=== PATIENT | female | born 1965 | race Caucasian/White ===

== ENCOUNTER 2021-05-23 15:18 | Emergency (ER) | payer SELFPAY ==
[2021-05-23] MEDS ORDERED: SODIUM CHLORIDE 0.9% 1000 ML 1,000 ML IV ONE (15:48)
--- NOTE | 2021-05-23 15:48 | Emergency Department Report ---
ED Headache HPI - General Chief Complaint: Headache Stated Complaint: PAIN IN LT HEAD/FULLNESS IN LT EAR Time Seen by Provider: 05/23/21 15:32 Source: patient Exam Limitations: no limitations - History of Present Illness Initial Comments: 56-year-old female with a past medical history of SVT but currently not any medications for it presents to the ER today with complaints of tenderness to her left temporal area as well as fullness to her left ear. Patient states that symptoms started about 2 days ago. She describes the pain as throbbing and has been constant for the past 2 days. She denies any pain in her ear or drainage from the ear. She denies any recent injuries to her head or her ear. She denies any recent URI symptoms. She denies any vision changes, any rash, numbness, tingling, focal weakness, dizziness, nausea, vomiting, neck pain, fever or chills. She states that she used to suffer from migraines several years ago but she has not had any issues with it in a while and this does not feel typical of her migraine she used to get several years ago. She states that she took Tylenol but that did not help much. She states that the pain is worse on palpation and when she lays her head on the left side. She states that it feels like the temporal area swollen and she noticed that her vein was bulging earlier today. She states that pain is not worse when she chews. She denies any dental pain. She denies any redness or warmth to the area. She denies any apparent rash. Denies any family history of aneurysms or past history of intracranial bleed. She does not smoke or do any drugs. Timing/Duration: constant, other ( 3 days ) Quality: moderate Head Injury Location: temporal Allergies/Adverse Reactions: Allergies latex Allergy (Verified 05/23/21 15:22) Rash Home Medications: Ambulatory Orders Amoxicillin [Trimox CAP] 500 mg PO Q8H #30 capsule 05/23/21 ED Review of Systems ROS: Stated complaint: PAIN IN LT HEAD/FULLNESS IN LT EAR Other details as noted in HPI Comment: All other systems reviewed and negative Eyes: denies: eye pain, eye discharge, vision change ENT: denies: ear pain, throat pain, epistaxis, congestion Respiratory: denies: cough, shortness of breath, SOB with exertion, SOB at rest, wheezing Cardiovascular: denies: chest pain, palpitations Endocrine: no symptoms reported Gastrointestinal: denies: abdominal pain, nausea, vomiting, diarrhea, constipation, hematemesis, hematochezia Genitourinary: denies: urgency, dysuria, frequency, hematuria, discharge, abnormal menses, dyspareunia Musculoskeletal: denies: back pain, joint swelling, arthralgia, myalgia Skin: denies: rash, lesions, change in color, change in hair/nails, pruritus Neurological: headache. denies: weakness, numbness, paresthesias, confusion, abnormal gait, vertigo Psychiatric: denies: anxiety, depression, homicidal thoughts, suicidal thoughts Hematological/Lymphatic: denies: easy bleeding, easy bruising, swollen glands ED Past Medical Hx - Past Medical History Previous Medical History?: Yes Additional medical history: SVT - Surgical History Past Surgical History?: Yes Additional Surgical History: x2 - Medications Home Medications: Home Medications Medication Instructions Recorded Confirmed Last Taken Type Amoxicillin [Trimox CAP] 500 mg PO Q8H #30 capsule 05/23/21 Unknown Rx ED Physical Exam - General Limitations: No Limitations General appearance: alert, in no apparent distress - Head Head exam: Present: atraumatic, normocephalic, normal inspection, other (TTP left temporal area with any apparent swelling, mass, erythema or induration. No crepitus or deformity.) - Eye Eye exam: Present: normal appearance, PERRL, EOMI Pupils: Present: normal accommodation - ENT ENT exam: Present: other (No mastoid tenderness or swelling.) - Expanded ENT Exam Expanded Ear exam: Absent: auricular hematoma, auricular trauma TM/Canal exam: Erythema: Left TM (Mild to moderate), Effusion: Left TM Mouth exam: Present: normal external inspection Teeth exam: Present: normal inspection Throat exam: Positive: normal inspection, tonsillar exudate - Neck Neck exam: Present: normal inspection, full ROM. Absent: meningismus - Respiratory Respiratory exam: Present: normal lung sounds bilaterally. Absent: respiratory distress, wheezes, rales, rhonchi, stridor - Cardiovascular Cardiovascular Exam: Present: regular rate, normal rhythm, normal heart sounds - Neurological Exam Neurological exam: Present: alert, oriented X3, CN II-XII intact, normal gait, reflexes normal. Absent: motor sensory deficit - Expanded Neurological Exam Expanded Patient oriented to: Present: person, place, time Speech: Present: fluid speech Cranial nerves: EOM's Intact: Normal, Gag Reflex: Normal, Facial Sensation: Normal Cerebellar function: Finger to Nose: Normal, Heel to Davis: Normal, Romberg: Normal Sensory exam: Upper Extremity Light Touch: Normal, Upper Extremity Temperature: Normal, Lower Extremity Light Touch: Normal, Lower Extremity Temperature: Normal Motor strength exam: RUE: 5, LUE: 5, RLE: 5, LLE: 5 - Psychiatric Psychiatric exam: Present: normal affect, normal mood ED Course Vital Signs 05/23/21 05/23/21 15:22 19:04 Temperature 98.2 F Pulse Rate 64 56 L Respiratory 18 18 Rate Blood Pressure 116/54 112/53 [Right] O2 Sat by Pulse 99 100 Oximetry ED Medical Decision Making - Lab Data Result diagrams: 05/23/21 16:30 05/23/21 16:30 - Medical Decision Making 56-year-old female with a past medical history of SVT but currently not any medications for it presents to the ER today with complaints of tenderness to her left temporal area as well as fullness to her left ear. Patient states that symptoms started about 2 days ago. She describes the pain as throbbing and has been constant for the past 2 days. She denies any pain in her ear or drainage from the ear. She denies any recent injuries to her head or her ear. She denies any recent URI symptoms. She denies any vision changes, any rash, numbness, tingling, focal weakness, dizziness, nausea, vomiting, neck pain, fever or chills. She states that she used to suffer from migraines several years ago but she has not had any issues with it in a while and this does not feel typical of her migraine she used to get several years ago. She states that she took Tylenol but that did not help much. She states that the pain is worse on palpation and when she lays her head on the left side. She states that it feels like the temporal area swollen and she noticed that her vein was bulging earlier today. She states that pain is not worse when she chews. She denies any dental pain. She denies any redness or warmth to the area. She denies any apparent rash. Denies any family history of aneurysms or past history of intracranial bleed. She does not smoke or do any drugs. Labs reviewed and unremarkable including a normal CRP and sed rate. Patient is well-appearing, nontoxic and not in any acute distress. She is awake alert and oriented x3. She currently has a GCS of 15. She has no focal neurological deficits on exam. No meningeal signs on exam. Her vital signs are stable. She was offered medication to help her pain but she did not want anything at the time. Her gait is normal. Her history and physical exam and diagnostic testing does not suggest intracranial abnormality, shingles, Swartz's palsy, meningitis, temporal arteritis, any emergent conditions warranting any additional testing, admission or emergent specialist consult at this time. Left ear exam is concerning for otitis media. Patient was also seen in evaluated by Dr. Castellano see his note for further details. Discussed all results with patient. She will be given referral to outpatient neurology as well as ophthalmology for further evaluation of her symptoms, but in the meantime she will be started on oral antibiotic for otitis media and she states that she will take ibuprofen when she gets home for pain. Patient expressed understanding of all instructions and agree with plan. Patient stable at time of discharge. Critical care attestation.: If time is entered above; I have spent that time in minutes in the direct care of this critically ill patient, excluding procedure time. ED Disposition Clinical Impression: Left temporal headache, Otitis media Disposition: 01 HOME / SELF CARE / HOMELESS Is pt being admited?: No Does the pt Need Aspirin: No Condition: Stable Instructions: General Headache Without Cause, Otitis Media, Adult, [id number] Additional Instructions: Recommend taking ibuprofen as needed for any pain. Your left ear is concerning for otitis media and so therefore you will be started on oral antibiotics most importantly I do recommend that you follow-up with a neurologist especially if y our symptoms persist as well as pump attendant for follow-up on your left temporal pain. Referral information will be given to you in your discharge instructions. It is also important that you establish with a primary care doctor other than your family member for primary care. One will be provided to you also on your discharge instructions. Return to the ER if your symptoms is worsening or changing in any way. Prescriptions: Amoxicillin [Trimox CAP] 500 mg PO Q8H #30 capsule Referrals: LLOYD KUHN MD [Staff Physician] - 3-5 Days (Primary care physician) RAJESH ALEXANDRA MD [Staff Physician] - 3-5 Days (Primary care physician) BETH DAVID MD [Staff Physician] - 3-5 Days (Neurologist) KAREN MARY MD [Referring] - 3-5 Days (Neurology) Forms: Work/School Release Form(ED) Time of Disposition: 18:56
[2021-05-23] MEDS ORDERED: LIDOCAINE (1%) 10 MG/1 ML VIAL 20 ML MDV INFILTRATI ONE (16:01)
[2021-05-23] MEDS ORDERED: METOCLOPRAMIDE 10 MG TAB PO ONE (16:01)
[2021-05-23] MEDS ORDERED: diphenhydrAMINE 25 MG CAP PO ONE (16:01)
--- NOTE | 2021-05-23 16:02 | Event Note ---
Date of service: 05/23/21 Face to Face: For this encounter I have reviewed the PA[employer] documentation, treatment plan, medical decision making, and I had face to face time with this patient. The patient is seen and examined. She complains of new onset left-sided temporal pain, without claudication in the jaw, or change in vision. Her bilateral ear exam is unremarkable. Visual acuity intact to finger counting, color perception, reading at a close distance there is no facial droop. The tongue is midline. Extraocular movements are intact bilaterally. There is 5 out of 5 strength in bilateral upper and lower extremities. Sensation is intact to light touch bilateral upper and lower extremities. There is no past-pointing. There is no pronator drift. There is normal [id number]. There is a normal gait. Bilateral tympanic membranes are clear. There is no tenderness to percussion of the teeth. She also reports that she is up-to-date with a glasses prescription, but that she does not use her glasses prescription on a regular basis. She also reports excessive screen time, both at work and at home. She reports that she has he does not have a primary care doctor, but reports that her spouse who is a physician manages her medically. Remainder of physical exam is unremarkable. Patient will be treated supportively and symptomatically. Headache/temporal pain not sudden or thunderclap in nature, not maximal in intensity, and not the worst headache of her life. In addition, she only complains of left-sided temporal pain, and not headache. She has reproducible left-sided temporal tenderness. Neuro imaging is unlikely to be of any utility at this time, given history and physical. 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 Laboratory studies will be obtained to risk stratify patient for temporal arteritis. Patient is strongly encouraged to follow-up with an outpatient neurologist or spreader operator. She is also encouraged to minimize screen time and cell phone utilization, and she is also encouraged to find a primary care doctor who is not a family member. She is further encouraged to wear her corrective lenses at the appropriate times
[2021-05-23] MEDS ORDERED: BUPIVACAINE/PF (0.5%) 5 MG/1 ML 10 ML VIAL INFILTRATI ONE (16:06)
[2021-05-23 17:57] LABS: Alanine Aminotransferase 16 units/L (7-56); Albumin 4.4 g/dL (3.9-5); Blood Urea Nitrogen 16 mg/dL (7-17); Calcium 9.4 mg/dL (8.4-10.2); Hemolysis Index 10
[2021-05-23 18:03] LABS: BUN/Creatinine Ratio 23
[2021-05-23 18:40] LABS: Basophils % (Auto) 0.3 % (0.0-1.8); Eosinophils # (Auto) 0.1 K/mm3 (0.0-0.4); Eosinophils % (Auto) 1.1 % (0.0-4.3); Hematocrit 39.1 % (30.3-42.9); Hemoglobin 12.8 gm/dl (10.1-14.3); Lymphocytes # (Auto) 2.9 K/mm3 (1.2-5.4); Lymphocytes % (Auto) 44.6 % (13.4-35.0); Mean Corpuscular HGB Conc 33 % (30-34); Mean Corpuscular Volume 87 fl (79-97); Monocytes # (Auto) 0.5 K/mm3 (0.0-0.8); Platelet Count 214 K/mm3 (140-440); Red Blood Count 4.49 M/mm3 (3.65-5.03); Red Cell Distribution Width 13.8 % (13.2-15.2)
[2021-05-23 18:50] LABS: Erythrocyte Sedimentation Rate 8 mm/Hr (0-20)
[2021-05-23 19:05] VITALS: BP 112/53
== END 2021-05-23 19:04 | disposition home or self-care (01) ==
LOC: ED 15:18
DX: H66.92 Otitis media, unspecified, left ear (principal); R51.9 Headache, unspecified; Z98.890 Other specified postprocedural states; Z91.040 Latex allergy status; Z79.899 Other long term (current) drug therapy
CPT/HCPCS: 36415; 80053; 85025; 85652; 86140; 99283